=== PATIENT | female | born 1995 ===

== ENCOUNTER 2019-10-27 10:17 | Emergency (ER) | payer SELFPAY ==
[2019-10-27 11:43] LABS: HIV (1/2) Antibody/Antigen Non-Reactive (NonReactive); HIV 1/2 INDEX 0.06 S/CO (<1.00); Hep C IgG Ab Non-Reactive (NonReactive); Hep C Index 0.13 S/CO (0-0.79)
[2019-10-27 11:47] LABS: HBSAB Concentration 131.19 mIU/mL; Hep B Surf AB Reactive (NonReactive)
== END 2019-10-27 12:12 | disposition home or self-care (01) ==
LOC: ERS 10:17
DX: Z77.21 Contact with and (suspected) exposure to potentially hazardous body fluids (principal)
CPT/HCPCS: 86706; 86803; 87389; 99283